=== PATIENT | male | born 1945 | race Hispanic/Latino ===

== ENCOUNTER → 2020-04-09 | Outpatient (CLI) | payer OTHER | END | disposition home or self-care (01) | LOC: SHCH 09:52 | PROVIDERS: ATTEND Internal Medicine Cardiovascular Disease | DX: I51.7 Cardiomegaly (principal); I87.2 Venous insufficiency (chronic) (peripheral); I48.91 Unspecified atrial fibrillation | CPT/HCPCS: 93306; 93356; 93970 ==

== ENCOUNTER → 2020-05-22 | Outpatient (CLI) | payer OTHER ==
[~2020-05-22] VITALS: Ht 147.3 cm; Wt 65.3 kg
[~2020-05-22] MED LIST: REGADENOSON 0.4 MG/5 ML PF SYG IVP SCH
== END | disposition home or self-care (01) ==
LOC: SHCH 09:03
PROVIDERS: ATTEND Internal Medicine Cardiovascular Disease
DX: I25.119 Atherosclerotic heart disease of native coronary artery with unspecified angina pectoris (principal)
CPT/HCPCS: 78452; 93017; 96374; A9500 ×2; J2785

== ENCOUNTER → 2020-06-24 | Outpatient (CLI) | payer OTHER | END | disposition home or self-care (01) | LOC: SHCH 10:00 | PROVIDERS: ATTEND Internal Medicine Cardiovascular Disease | DX: Z09 Encounter for follow-up examination after completed treatment for conditions other than malignant neoplasm (principal); R94.8 Abnormal results of function studies of other organs and systems; Z98.890 Other specified postprocedural states | CPT/HCPCS: 93971 ==

== ENCOUNTER → 2021-07-28 | Outpatient (CLI) | payer OTHER | END | disposition home or self-care (01) | LOC: RAH 11:32 | PROVIDERS: ATTEND Internal Medicine | DX: S66.811A Strain of other specified muscles, fascia and tendons at wrist and hand level, right hand, initial encounter (principal); R22.31 Localized swelling, mass and lump, right upper limb; X58.XXXA Exposure to other specified factors, initial encounter; Y93.89 Activity, other specified; Y92.89 Other specified places as the place of occurrence of the external cause; Y99.8 Other external cause status | CPT/HCPCS: 93971 ==

== ENCOUNTER → 2022-03-11 | Outpatient (CLI) | payer OTHER | END | disposition home or self-care (01) | LOC: RAH 10:16 | PROVIDERS: ATTEND Internal Medicine Gastroenterology | DX: R13.10 Dysphagia, unspecified (principal); R63.30 Feeding difficulties, unspecified; R93.3 Abnormal findings on diagnostic imaging of other parts of digestive tract | CPT/HCPCS: 74230; 92611 ==

== ENCOUNTER → 2022-06-21 | Outpatient (CLI) | payer OTHER | END | disposition home or self-care (01) | LOC: SHCH 10:17 | PROVIDERS: ATTEND Internal Medicine Cardiovascular Disease | DX: I11.9 Hypertensive heart disease without heart failure (principal); I48.0 Paroxysmal atrial fibrillation; I87.2 Venous insufficiency (chronic) (peripheral); E11.9 Type 2 diabetes mellitus without complications; E78.5 Hyperlipidemia, unspecified; R60.9 Edema, unspecified | CPT/HCPCS: 93306 ==

== ENCOUNTER → 2022-07-15 | Outpatient (CLI) | payer OTHER | END | disposition home or self-care (01) | LOC: OIH 09:13 | PROVIDERS: ATTEND Internal Medicine Cardiovascular Disease | DX: I87.2 Venous insufficiency (chronic) (peripheral) (principal) | CPT/HCPCS: 93970 ==

== ENCOUNTER → 2022-08-11 | Outpatient (CLI) | payer OTHER | END | disposition home or self-care (01) | LOC: RAH 10:21 | PROVIDERS: ATTEND Internal Medicine Gastroenterology | DX: R13.12 Dysphagia, oropharyngeal phase (principal); R63.30 Feeding difficulties, unspecified | CPT/HCPCS: 74230; 92611 ==

== ENCOUNTER → 2022-12-22 | Outpatient (CLI) | payer OTHER | END | disposition home or self-care (01) | LOC: RAH 12:43 | PROVIDERS: ATTEND Internal Medicine | DX: R60.0 Localized edema (principal) | CPT/HCPCS: 93970 ==

== ENCOUNTER → 2023-01-11 | Outpatient (CLI) | payer OTHER ==
[2023-01-11 12:50] LABS: POTASSIUM 3.6 mmol/L (3.5-5.1)
== END | disposition home or self-care (01) ==
LOC: LAB 11:11
PROVIDERS: ATTEND Internal Medicine Cardiovascular Disease
DX: I10 Essential (primary) hypertension (principal); I87.2 Venous insufficiency (chronic) (peripheral)
CPT/HCPCS: 36415; 80048

== ENCOUNTER → 2023-03-14 | Outpatient (CLI) | payer OTHER ==
[2023-03-14 12:30] LABS: BASOPHILS % (AUTO) 0.5 % (0.0-5.0); CREATININE 0.9 mg/dL (0.5-1.5); EOSINOPHILS % (AUTO) 1.2 % (0.0-8.0); HEMATOCRIT 37.2 % (42-54); LYMPHOCYTES % (AUTO) 24.2 % (21.0-51.0); MEAN CORPUSCULAR HEMOGLOBIN 28.8 pg (27.0-33.0); MEAN CORPUSCULAR HGB CONC 32.5 g/dL (32.0-36.0); MEAN CORPUSCULAR VOLUME 88.6 fL (79-99); MONOCYTES % (AUTO) 8.4 % (3.0-13.0); NEUTROPHILS % (AUTO) 65.5 % (40.0-77.0); PLATELET COUNT (AUTO) 227 K/uL (130-400); POTASSIUM 3.7 mmol/L (3.5-5.1); RED CELL DISTRIBUTION WIDTH 17.5 % (11.0-15.5); WHITE BLOOD COUNT (AUTO) 5.8 K/uL (4.8-10.8)
[2023-03-14 13:02] LABS: INR 1.09 (0.85-1.15); PROTHROMBIN TIME 11.8 SEC (9.6-11.6)
[2023-03-14 13:04] LABS: PARTIAL THROMBOPLASTIN TIME 33.6 SEC (26.3-35.5)
== END | disposition home or self-care (01) ==
LOC: LAB 11:14
PROVIDERS: ATTEND Internal Medicine Cardiovascular Disease
DX: I87.2 Venous insufficiency (chronic) (peripheral) (principal); I10 Essential (primary) hypertension; I48.91 Unspecified atrial fibrillation
CPT/HCPCS: 36415; 80048; 85025; 85610; 85730

== ENCOUNTER → 2023-04-04 | Outpatient (CLI) | payer OTHER | END | disposition home or self-care (01) | LOC: RAH 07:47 | PROVIDERS: ATTEND Internal Medicine | DX: I71.43 Infrarenal abdominal aortic aneurysm, without rupture (principal) | CPT/HCPCS: 76775 ==

== ENCOUNTER → 2023-08-31 | Outpatient (CLI) | payer OTHER | END | disposition home or self-care (01) | LOC: SHCH 07:53 | PROVIDERS: ATTEND Internal Medicine Cardiovascular Disease | DX: I87.2 Venous insufficiency (chronic) (peripheral) (principal); I87.1 Compression of vein; I82.812 Embolism and thrombosis of superficial veins of left lower extremity | CPT/HCPCS: 93970 ==

== ENCOUNTER → 2024-05-14 | Outpatient (CLI) | payer OTHER | END | disposition home or self-care (01) | LOC: RAH 14:29 | PROVIDERS: ATTEND Internal Medicine | DX: S32.000A Wedge compression fracture of unspecified lumbar vertebra, initial encounter for closed fracture (principal); M81.0 Age-related osteoporosis without current pathological fracture; X58.XXXA Exposure to other specified factors, initial encounter; Y93.89 Activity, other specified; Y92.89 Other specified places as the place of occurrence of the external cause; Y99.8 Other external cause status | CPT/HCPCS: 77080 ==

== ENCOUNTER → 2024-07-20 | Outpatient (CLI) | payer OTHER | END | disposition home or self-care (01) | LOC: SHCH 10:44 | PROVIDERS: ATTEND Internal Medicine Cardiovascular Disease | DX: I08.8 Other rheumatic multiple valve diseases (principal); I11.9 Hypertensive heart disease without heart failure; I48.0 Paroxysmal atrial fibrillation; E11.9 Type 2 diabetes mellitus without complications; E78.5 Hyperlipidemia, unspecified | CPT/HCPCS: 93306; 93356 ==

== ENCOUNTER → 2024-08-30 | Outpatient (CLI) | payer OTHER ==
--- NOTE | 2024-08-30 18:28 | HMCSR ---
APPROVED REPORT Bilateral Lower Extremity Venous Study for DVT., Venous Competence.Study performed with patient in up right position or in reverse Trendelenburg. Past History 06/12 CV LGSV , LCIV/EIV Stent Vein Imaging CFV (R): Normal flow, augmentation and compression. No evidence of DVT, Tyvuwydx53.3 mm SFJ (R): Normal flow, augmentation and compression. No evidence of DVT. FEM (R): Normal flow, augmentation and compression. No evidence of DV, 817 ms of DVR. POP (R): Normal flow, augmentation and compression. No evidence of DVT.Normal flow, augmentation and compression. No evidence of DVT. DFV (R): Normal flow, augmentation and compression. No evidence of DVT. PTV (R): Normal flow, augmentation and compression. No evidence of DVT. Peroneals (R): Normal flow, augmentation and compression. No evidence of DVT. GAS (R): Normal flow, augmentation and compression. No evidence of DVT. CFV (L): Normal flow, augmen tation and compression. No evidence of DVT, Diameter 11.3 mm, 467 ms of DVR. SFJ (L): Normal flow, augmentation and compression. No evidence of DVT. FEM (L): Normal flow, augmentation and compression. No evidence of DVT, 561 ms of DVR. POP (L): Normal flow, augmentation and compression. No evidence of DVT, 989 ms of DVR. DFV (L): Normal flow, augmentation and compression. No evidence of DVT, 494 ms of DVR. PTV (L): Normal flow, augmentation and compression. No evidence of DVT. Peroneals (L): Normal flow, augmentation and compression. No evidence of DVT. GAS (L): Normal flow, augmentation and compression. No evidence of DVT. Technologist Impression The deep veins of the bilateral lower extremities appear patent and compressible without evidence of thrombus. Significant deep venous reflux demonstrated in the left popliteal vein. There is evidence of significant superficial venous insufficiency in the residual left greater saphen ous vein. RGSV Junction 3.6 mm 306 ms Mid thigh 3.0 mm 244 ms Knee 2.6 mm 0 ms Mid- calf 2.2 mm 0 ms RSSV Prox 1.3 mm 233 ms Mid 1.9 mm 0 ms LGSV Junction 3.2 mm 0 ms Mid thigh-Occluded Knee -Occluded Mid-calf 2.0 mm 1283 ms LSSV Prox 1.3 mm 0 ms Mid-Occluded Conclusion Moderate deep venous reflux noted Clinical correlation recommended Conclusion Moderate deep venous reflux noted Clinical correlation recommended
--- NOTE | 2024-08-30 18:28 | HMCSR ---
APPROVED REPORT Laterality: Bilateral VELOCITY AND DOPPLER WAVEFORM ANALYSIS CLAIM SERVICE REPRESENTATIVE (R) 76.4cm/sec, Triphasic, CLAIM SERVICE REPRESENTATIVE (L) 82.2cm/sec, Triphasic, Prof Fem Art. (R) 44.9cm/sec, Triphasic, Prof Fem Art. (L) 39.4cm/sec, Biphasic, Fem Art Prox. (R) 69.5cm/sec, Triphasic, Fem Art Prox. (L) 70.6cm/sec, Triphasic, Fem Art Mid. (R) 74.5cm/sec, Triphasic, Fem Art Mid. (L) 74.1cm/sec, Triphasic, Fem Art Dist (R) 57.4cm/sec, Triphasic, Fem Art Dist. (L) 83.4cm/sec, Triphasic, Pop Art(AK) (R) 58.3cm/sec, Triphasic, Pop Art (AK) (L) 66.0cm/sec, Triphasic, Pop Art (Fossa)(R) 60.1cm/sec, Triphasic, Pop Art (Fossa) (L) 56.7cm/sec, Triphasic, Pop Art(BK) (R) 82.2cm/sec, Triphasic, Pop Art (BK) (L) 88.0cm/sec, Triphasic, REGIONAL FORESTER Dist. (R) 66.0cm/sec, Triphasic, REGIONAL FORESTER Dist. (L) 74.1cm/sec, Triphasic, Per Art Dist. (R) 52.1cm/sec, Triphasic, Per Art Dist. (L) 66.0cm/sec, Triphasic, JAKE Dist. (R) 78.7cm/sec, Triphasic, JAKE Dist. (L) 70.6cm/sec, Triphasic, Technologist Impression Diffuse atherosclerosis throughout the bilateral lower extremities with no evidence of significant ar terial insufficiency. Conclusion No evidence of significant arterial insufficiency of bilateral lower extremities. Conclusion No evidence of significant arterial insufficiency of bilateral lower extremities.
== END | disposition home or self-care (01) ==
LOC: SHCH 12:54
PROVIDERS: ATTEND Internal Medicine Cardiovascular Disease
DX: I70.293 Other atherosclerosis of native arteries of extremities, bilateral legs (principal); I87.1 Compression of vein; I87.2 Venous insufficiency (chronic) (peripheral)
CPT/HCPCS: 93925; 93970

== ENCOUNTER 2024-11-29 05:53 | Observation (INO) | payer OTHER ==
[2024-11-27 11:03] LABS: ADD UA MICROSCOPIC NO; APPEARANCE,URINE CLEAR (CLEAR); BILIRUBIN,URINE NEGATIVE (NEGATIVE); COLOR,URINE LIGHT-YELLOW (YELLOW); GLUCOSE, URINE (UA) NEGATIVE (NEGATIVE); KETONES,URINE NEGATIVE (NEGATIVE); LEUKOCYTE ESTERASE ,URINE NEGATIVE Leu/uL (NEGATIVE); NITRATE,URINE NEGATIVE (NEGATIVE); OCCULT BLOOD,URINE NEGATIVE (NEGATIVE); PH,URINE 5.5 (5.0-8.0); PROTEIN,URINE NEGATIVE (NEGATIVE); UROBILINOGEN,URINE 0.2 mg/dL (0.2-1.0)
[2024-11-27 11:11] LABS: BASOPHILS # (AUTO) 0.03 K/uL (0.00-0.20); BASOPHILS % (AUTO) 0.7 % (0.0-5.0); EOSINOPHILS # (AUTO) 0.09 K/uL (0.00-0.70); HEMATOCRIT 34.6 % (42-54); IMMATURE GRANULOCYTE ABSOLUTE 0.02 K/uL (0-1); LYMPHOCYTES # (AUTO) 1.2 K/uL (1.0-4.8); LYMPHOCYTES % (AUTO) 26.8 % (21.0-51.0); MEAN CORPUSCULAR HEMOGLOBIN 28.1 pg (27.0-33.0); MEAN CORPUSCULAR HGB CONC 31.8 g/dL (32.0-36.0); MEAN CORPUSCULAR VOLUME 88.3 fL (79-99); MONOCYTES # (AUTO) 0.5 K/uL (0.1-1.0); MONOCYTES % (AUTO) 10.9 % (3.0-13.0); NEUTROPHILS # (AUTO) 2.7 K/uL (1.8-7.7); NEUTROPHILS % (AUTO) 59.2 % (40.0-77.0); PLATELET COUNT (AUTO) 208 K/uL (130-400); RED BLOOD CELL COUNT(AUTO) 3.92 MIL/uL (4.50-6.20); RED CELL DISTRIBUTION WIDTH 18.9 % (11.0-15.5); WHITE BLOOD COUNT (AUTO) 4.6 K/uL (4.8-10.8)
[2024-11-27 11:18] LABS: CREATININE 0.8 mg/dL (0.5-1.3); POTASSIUM 3.7 mmol/L (3.5-5.1)
--- NOTE | 2024-11-27 11:22 | EKG ---
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
[2024-11-27 11:31] LABS: INR 0.99 (0.85-1.15); PROTHROMBIN TIME 11.1 SEC (9.6-11.6)
[2024-11-27 11:32] LABS: PARTIAL THROMBOPLASTIN TIME 30.2 SEC (26.3-35.5)
[2024-11-27 11:36] LABS: B-TYPE NATRIURETIC PEPTIDE 87 pg/mL (0-100)
[2024-11-27 11:49] VITALS: BP 135/73; PULSE 88; RESP 18; TEMP 97.4
--- NOTE | 2024-11-27 12:23 | HMCIMG ---
Exam Type: CHEST 1VW Clinical Information: PREOP Comparison: None Findings: Old healed left-sided rib fractures are seen. The lungs are clear of infiltrates. The heart is enlarged. Bony and soft tissue structures of the chest wall are unremarkable. IMPRESSION: Cardiomegaly. Clear lungs.
[~2024-11-29] VITALS: Ht 172.7 cm; Wt 61.9 kg
[2024-11-29] VITALS (15 sets, daily range): BP systolic 105–147; BP diastolic 70–86; PULSE 65–84; RESP 10–18; TEMP 97.1–98.2; O2SAT 94
[~2024-11-29 05:53] MED LIST changes: +ALEN70TA80 PO; +ATOR40TA71 PO; +ESOM40CA66 PO; +METF-446 PO; +METO-391 PO; +RANO500T6 PO; -REGADENOSON 0.4 MG/5 ML PF SYG IVP SCH; +RIVA20TA PO; +TAMS-1 PO
[2024-11-29] MEDS: 0.9%NACL 1000ML 1,000 ML IV SCH (07:10)
[2024-11-29] MEDS ORDERED: LIDOCAINE HCL 400MG/20ML VIAL ONE (07:17)
[2024-11-29] MEDS ORDERED: FENTanyl CITRate PF 50 MCG/1 ML 2ML VIAL ONE (07:17)
[2024-11-29] MEDS ORDERED: HEParin 10,000 UNIT/10ML (1,000 UNIT/ML) VIAL ONE (07:17)
[2024-11-29] MEDS ORDERED: IOHEXOL 350 MG/ML 100ML INFUS..BTL IV ONE (07:17)
[2024-11-29] MEDS ORDERED: MIDAZOLAM HCL 1 MG/ML 2ML VIAL ONE ×2 (07:17→08:06)
[2024-11-29] MEDS ORDERED: HEParin-NS 1,000 UNIT/500 ML 1,000 ML IV ONE (07:17)
[2024-11-29] MEDS ORDERED: BIVALIRUDIN 250 MG/VIAL IV ONE (07:17)
[2024-11-29] MEDS ORDERED: NITROGLYCERIN 50MG VIAL ONE (07:18)
[2024-11-29] MEDS ORDERED: ATROPINE 1MG SYG IVP ONE (08:00)
[2024-11-29] MEDS ORDERED: HEParin-NS 1,000 UNIT/500 ML 500 ML IV ONE (08:18)
[2024-11-29] MEDS ORDERED: DOPamine HCL 400 MG/D5%-WATER 0 ML IV ONE (08:20)
[2024-11-29] MEDS ORDERED: cloPIDOgrel 300MG TAB ONE (08:49)
[2024-11-29] MEDS ORDERED: GLUCAGON 1MG KIT 1 MG ML IM PRN ×2 (09:00)
[2024-11-29] MEDS ORDERED: DEXTROSE 50%-WATER 50 ML DISP.SYRIN IV PRN ×2 (09:00)
--- NOTE | 2024-11-29 09:09 | PRN ---
PROCEDURES: 1. Right common femoral arterial sheath placement. 2. Selective coronary angiogram. 3. Conscious sedation 4. Angioplasty and stent placement to distal right coronary artery with the use of a 3 mm by 28 mm medicated stent deployed to 3.05 mm INDICATION: Class two angina DESCRIPTION OF PROCEDURE: The patient was brought to the catheterization suite and prepped and draped in sterile fashion. IV was started, and not already in place and both groins were exposed for arterial access. 1% lidocaine was used for local anesthesia and then a micropuncture kit was used to gain access once free-flowing blood was seen, modified Seldinger technique was utilized to place a 6 Tajik sheath into the right common femoral artery. Next, preformed JL4 and JR 4 catheters were used to selectively engage the [place] coronary vessels and multiple hand contrast injections were performed in different views to define the coronary anatomy. FINDINGS: The left main artery bifurcates into the LAD and left circumflex and a significantly calcified with no stenosis present. The left anterior descending artery has a stent noted in its mid section after diagonal branch 1. Which was patent. The left circumflex artery gives rise to a high obtuse marginal branch 1. Which was a long bifurcating vessel with a small obtuse marginal branch 2. And the ongoing left circumflex free of any significant stenosis. This is a nondominant left circumflex artery. The right coronary artery has stents noted in its proximal and mid segment which are patent this is a tortuous calcified vessel with an area of stenosis of 85% after mid RCA stent. This is a dominant system giving rise to a patent PDA and RPL. LVEDP was not obtained left ventriculogram was not performed. INTERVENTIONAL REPORT: After diagnostic coronary angiography was performed it was felt intervention should be done to distal right coronary artery therefore a six Tajik JR4 guide catheter with side holes was then placed into the right coronary artery and then initially a choice PT extra-support 0.014 in wire was placed into the distal ongoing PDA and or fluoroscopic guidance toward next attempts were made to pass a balloon down to the distal RCA but was significant issues and difficulty it was felt guide liner should be utilized. We also decided to exchange out the choice PT extra-support wire for an iron man wire which we did through a tapered catheter and parked the iron man into the distal PDA in her fluoroscopic guidance. Next a 2.5 mm balloon was then used to pre dilate the distal RCA with multiple inflations done in an overlapping fashion. Next a 3 mm balloon was then used to pre dilate reason and advanced guide liner as initial time stent would not go down. Finally the Xience stent did was delivered through previously placed stents and parked in distal RCA in an overlapping fashion with previously placed mid RCA stent. This was deployed. There was significant wire bias noted within the mid RCA between the two stents and it was thought that maybe a 2nd stent should be placed and initially a resolute carmen stent was attempted but did push the guide in the guide liner route and upon further review the proximal portion of stent was flared even before any deployment was done. I then went home with another Xience stent but could not deliver and did not cross and secondary to wire placement we did remove this. There was a concern initially that this was just wire bias and follow up contrast injection well no evidence of dissection or perforation with LUI three flow noted and lesion within mid RCA disappeared and it was felt no further stenting should be done. At end of case a Mynx device was used for closure of arteriotomy site. RECOMMENDATIONS: Would like to monitor patient overnight IV fluids Discharge in a.m. Initiate dual antiplatelet therapy tonight Reinitiate Xarelto therapy tomorrow ELROY WEST MD Nov 29, 2024 09:09
--- NOTE | 2024-11-29 18:31 | NUR ---
CALLED TO CHECK STATUS ON A ROOM # AND WAS TOLD SHE GAVE THE ROOM # TO ONE OF THE [facility] SETTER NURSES AT 4373
--- NOTE | 2024-11-29 18:40 | NUR ---
REPORT TO NNEKA REYES 2ND FLOOR
--- NOTE | 2024-11-29 19:20 | NUR ---
PT TAKEN TO ROOM 225 BEDSIDE REPORT GIVEN TO DISPLAY DECORATOR RN MARGUERITE DRIVER PRIOR TO TRANSPORT
[2024-11-29] MEDS ORDERED: RIVAROXABAN 20 MG TABLET PO SCH (21:00)
[2024-11-29] MEDS ORDERED: PHARMACY COMMUNICATION MISC SCH (21:00)
[2024-11-29] MEDS ORDERED: COMPOUND PO MISCELLANEOUS 1 EACH MISC MISC PRN (21:00)
[2024-11-29] MEDS: tamSULOsin HCL 0.4 MG CAP.ER.24H PO SCH (21:12)
[2024-11-29] MEDS: metOPROLol sucCINATE 50 MG TAB.SR.24H PO SCH (21:12)
[2024-11-29] MEDS: atorVAStatin 40 MG TABLET PO SCH (21:12)
[2024-11-29] MEDS: RANOLAZINE 500 MG TAB.SR.12H PO SCH (21:12)
[2024-11-29] MEDS: PANTOPrazole 40 MG TAB DR PO SCH (21:12)
[2024-11-29] MEDS: acetaMINOPHEN 325 MG TAB PO PRN (21:14)
[2024-11-29] MEDS: LIDO 2% VISC 30ML+MAG/AL/SIMETH 30ML+DICYCLOMINE 20MG 10ML PO PRN (21:35)
[2024-11-30 00:14] VITALS: BP 116/77; PULSE 80; RESP 18; TEMP 98.2
[2024-11-30 04:00] VITALS: BP 108/71; PULSE 88; RESP 18; TEMP 98.4
[2024-11-30 05:55] LABS: HEMATOCRIT 30.5 % (42-54); MEAN CORPUSCULAR HEMOGLOBIN 28.4 pg (27.0-33.0); MEAN CORPUSCULAR HGB CONC 33.1 g/dL (32.0-36.0); MEAN CORPUSCULAR VOLUME 85.7 fL (79-99); RED BLOOD CELL COUNT(AUTO) 3.56 MIL/uL (4.50-6.20); RED CELL DISTRIBUTION WIDTH 18.8 % (11.0-15.5); WHITE BLOOD COUNT (AUTO) 5.8 K/uL (4.8-10.8)
[2024-11-30 06:15] LABS: CREATININE 0.9 mg/dL (0.5-1.3); POTASSIUM 3.9 mmol/L (3.5-5.1)
[2024-11-30 08:07] VITALS: BP 104/69; PULSE 76; RESP 16; TEMP 97.8
[2024-11-30] MEDS: cloPIDOgrel 75MG TAB PO SCH (08:28)
[2024-11-30] MEDS: ASPIRIN 81 MG EC TAB PO SCH (08:28)
[2024-11-30 08:30] VITALS: O2SAT 97
[2024-11-30] MEDS ORDERED: CLOP-31 PO (10:17)
[2024-11-30] MEDS ORDERED: AEC81 PO (10:17)
--- NOTE | 2024-11-30 11:02 | NUR ---
DISCHARGE Discharge instructions given to patient. Patient verbalized knowledge and understanding. Patient's prescription script given to patient. Patient knows need to fill prescription at his pharmacy.
--- NOTE | 2024-11-30 12:20 | NUR ---
Discharge Patient's spouse arrived to provide patient private transportation home. Patient discharged now.
[2024-11-30] MEDS ORDERED: RIVAROXABAN 20 MG TABLET PO SCH (21:00)
[2024-12-06] MEDS ORDERED: ALENDRONATE SODIUM 35 MG TAB PO SCH (06:30)
== END 2024-11-30 12:10 | disposition home or self-care (01) ==
LOC: DAH 05:53 → DAHIP 05:54 → 2DH 19:35
PROVIDERS: ADMIT Internal Medicine Cardiovascular Disease; ATTEND Internal Medicine Cardiovascular Disease
DX: I25.110 Atherosclerotic heart disease of native coronary artery with unstable angina pectoris (principal); R79.1 Abnormal coagulation profile; I48.19 Other persistent atrial fibrillation; E11.51 Type 2 diabetes mellitus with diabetic peripheral angiopathy without gangrene; I11.9 Hypertensive heart disease without heart failure; I87.1 Compression of vein; I87.2 Venous insufficiency (chronic) (peripheral); E78.5 Hyperlipidemia, unspecified; R00.0 Tachycardia, unspecified; Z79.899 Other long term (current) drug therapy; Z98.890 Other specified postprocedural states
CPT/HCPCS: 80048 ×2; 83880; 85025; 85610; 85730; 81003; 36415 ×2; 71045; 93005; 93454; 82948 ×2; 85027; C1769 ×2; C1887 ×4; C1894 ×2; C1725 ×3; C1760; Q9965 ×2; C1874; G0378 ×27; J3010; J3490 ×2; J2250 ×2; J1644 ×2; J0583; Q9967; A4215; A4223 ×3; A4222; A4221; A4663; A4216; A4606; C9600; 99156; 99157; J0461; J1265

== ENCOUNTER → 2025-09-13 | Outpatient (CLI) | payer OTHER ==
[~2025-09-13] MED LIST changes: +AEC81 PO; +CLOP-31 PO; -TAMS-1 PO; +TAMS-55 PO
--- NOTE | 2025-09-13 13:30 | NUR ---
MBSS COMPLETED (OUTPATIENT). Deep non-transient penetration after the swallow with thin liquids via straw sips with no cough response; No aspirations. RECOMMEND: Regular solids (MOIST), thin liquids (no straws), and pills whole or cut in half as tolerated. COMPENSATORY STRATEGIES: 1. sit upright during oral intake 2. small bites/sips 3. slow oral intake 4. extra dry swallows 5. alternate bites/sips NOTES: Pt with Hx of dysphagia and aspirations with straw sips. Pt reports coughs with regurgitations. DIAGNOSTIC FINDINGS: Pt with minimal to no improvements from previous MBSS completed on 08/11/2022. Pt presented with mild pharyngeal dysphagia characterized by decreased tongue base retraction; delayed pharyngeal response trigger and decreased hyo-laryngeal elevation/excursion evidenced by premature spillage to valleculae with spillover to pyriform sinuses; residue on base of tongue, valleculae, pyriform sinuses, and posterior pharyngeal wall cleared with extra dry swallows and liquid wash; resulting in deep non-transient penetration after the swallow with thin liquids via straw sips with no cough response; No aspirations. One regurgitation episode of residue from valleculae to oral cavity during extra dry swallows; SALES PROJECT MANAGER reviewed results and recommendations with patient. SALES PROJECT MANAGER educated patient on risks and consequences of aspiration. Speech therapy not warranted at this time. All questions answered. Addendum: 09/13/[address] ASAEL SANTOS Amended: Links added.
--- NOTE | 2025-09-18 12:23 | HMCIMG ---
MODIFIED BARIUM SWALLOW W CINE REASON: Dysphagia, oropharyngeal phase; Feeding difficulties, unspecified FINDINGS: Fluoroscopic assistance was provided to the speech pathologist while performing examination. For findings and dietary recommendations, refer to speech pathologist's report. FLUORO TIME: 2.4 minutes IMPRESSION: Modified barium swallow as described.
== END | disposition home or self-care (01) ==
LOC: RAH 12:48
PROVIDERS: ATTEND Internal Medicine Gastroenterology
DX: R13.12 Dysphagia, oropharyngeal phase (principal); R63.30 Feeding difficulties, unspecified
CPT/HCPCS: 74230; 92611